=== PATIENT | female | born 1960 | race African-American/Black ===

== ENCOUNTER 2019-07-21 13:36 | Emergency (ER) | payer MEDICAID, OTHER ==
[~2019-07-21] VITALS: Ht 149.9 cm; Wt 72.6 kg
[2019-07-21 13:58] VITALS: BP 127/83
--- NOTE | 2019-07-21 13:59 | NUR ---
ED Nurse Note: ambulated in to ED due to left flank pain x4 days without N/V/D. Denies burning pain while urination. Breathing normal/even/unlabored. Skin warm/dry/intact. NAD noted. Urine sent down to the lab.
[2019-07-21] MEDS ORDERED: Ketorolac 30mg Inj IM ONE (14:00)
[2019-07-21 14:02] LABS: APPEARANCE,URINE CLEAR; BILIRUBIN, URINE NEGATIVE (NEGATIVE); COLOR,URINE PALE YELLOW; GLUCOSE, URINE (UA) NEGATIVE (NEGATIVE); KETONES,URINE NEGATIVE (NEGATIVE); LEUKOCYTE ESTERASE ,URINE NEGATIVE (NEGATIVE); NITRITE,URINE NEGATIVE (NEGATIVE); PH,URINE 6 (4.5-8.0); PROTEIN,URINE NEGATIVE (NEGATIVE); UROBILINOGEN,URINE NORMAL MG/DL (0.0-1.0)
[2019-07-21] MEDS ORDERED: Methocarbamol 750mg tab ORAL ONE (14:15)
[2019-07-21 14:38] LABS: BASOPHILS % (AUTO) 1.5 % (0.0-2.0); EOSINOPHILS % (AUTO) 4.7 % (0.0-3.0); HEMATOCRIT 42.9 % (37.0-47.0); HEMOGLOBIN 14.7 G/DL (12.0-16.0); LYMPHOCYTES % (AUTO) 31.8 % (20.0-45.0); MEAN CORPUSCULAR VOLUME 84 FL (80-99); MONOCYTES % (AUTO) 6.7 % (1.0-10.0); NEUTROPHILS % (AUTO) 55.3 % (45.0-75.0); PLATELET COUNT 272 K/UL (150-450); RED BLOOD COUNT 5.09 M/UL (4.20-5.40); RED CELL DISTRIBUTION WIDTH 11.7 % (11.6-14.8); WHITE BLOOD COUNT 5.4 K/UL (4.8-10.8)
[2019-07-21 14:46] LABS: ALANINE AMINOTRANSFERASE 31 U/L (12-78); ALKALINE PHOSPHATASE 77 U/L (46-116); ANION GAP 9 mmol/L (5-15); ASPARTATE AMINO TRANSFERASE 22 U/L (15-37); BILIRUBIN,TOTAL 0.5 MG/DL (0.2-1.0); BLOOD UREA NITROGEN 14 mg/dL (7-18); CALCIUM 9.6 MG/DL (8.5-10.1); CARBON DIOXIDE 26 MMOL/L (21-32); CHLORIDE 106 MMOL/L (98-107); POTASSIUM 4.2 MMOL/L (3.5-5.1); SODIUM 141 MMOL/L (136-145)
--- NOTE | 2019-07-21 14:46 | Emergency Room Report ---
History of Present Illness General Chief Complaint: Lower Back Pain or Injury Source: Patient Present Illness HPI 58-year-old female with no significant past medical history here complaining of sudden onset of right lower back pain that started today after lifting heavy objects. Rates the pain 10/10 without radiation. Denies any tingling numbness , urinary bowel incontinence. Denies saddle paresthesia. Denies dysuria, urinary frequency and urgency. Reports that she was also exercising and her back came in contact repeatedly with the exercise that has a small first-degree burn the site of the injury. Denies any fall or loss of consciousness. Denies chest pain, shortness of breath, headache and dizziness. Vitals are within normal limits. Denies . Allergies: Coded Allergies: No Known Allergies (Unverified , 07/21/19) COVID-19 Screening Contact w/high risk pt: No Recent Travel to affected area: No Experienced COVID-19 symptoms?: No COVID-19 Testing performed MEDICAL SERVICES COORDINATOR: No Patient History Past Medical History: see triage record Past Surgical History: none Pertinent Family History: none Now: No Immunizations: UTD Reviewed Nursing Documentation: PMH: Agreed; PSxH: Agreed Nursing Documentation-PMH Past Medical History: No Stated History Review of Systems All Other Systems: negative except mentioned in HPI Physical Exam Vital Signs Date Time Temp Pulse Resp B/P (MAP) Pulse Ox O2 Delivery O2 Flow Rate FiO2 07/21/19 13:48 98.2 69 18 127/83 (98) 98 Room Air Sp02 EP Interpretation: reviewed, normal General Appearance: no apparent distress, alert, GCS 15, non-toxic Head: normocephalic, atraumatic Eyes: bilateral eye normal inspection, bilateral eye PERRL ENT: hearing grossly normal, normal pharynx, no angioedema, normal voice Neck: full range of motion, supple/symm/no masses Respiratory: chest non-tender, lungs clear, normal breath sounds, no rhonchi, no wheezing, speaking full sentences Cardiovascular #1: regular rate, rhythm, no edema Gastrointestinal: non tender, soft Genitourinary: no CVA tenderness Musculoskeletal: back normal, no calf tenderness, no lower extremity edema, non -tender Neurologic: alert, motor strength/tone normal, oriented x3, sensory intact, responsive, speech normal Psychiatric: judgement/insight normal, memory normal, mood/affect normal, no suicidal/homicidal ideation Skin: other - First-degree healing burn at the site of injury secondary to contact heat Lymphatic: no adenopathy Medical Decision Making PA Attestation All diagnoses and treatment plans were reviewed and discussed with my supervising physician Dr. Whitman Diagnostic Impression: Primary Impression: Lumbar strain Additional Impression: First degree burn ER Course 58-year-old female with no significant past medical history here complaining of sudden onset of right lower back pain that started today after lifting heavy objects. Rates the pain 10/10 without radiation. Denies any tingling numbness , urinary bowel incontinence. Denies saddle paresthesia. Denies dysuria, urinary frequency and urgency. Reports that she was also exercising and her back came in contact repeatedly with the exercise that has a small first-degree burn the site of the injury. Denies any fall or loss of consciousness. Denies chest pain, shortness of breath, headache and dizziness. Vitals are within normal limits. Denies . Ddx considered but are not limited to: Lumbar spine sprain, strain, fracture, contusion, neuropathy Vital signs: are WNL, pt. is afebrile H&PE are most consistent with:lumbar strain, first degree burn secondary to contact heat ORDERS: No x-ray necessary at this time has been no fall or there was no bone involvement, Robaxin, ibuprofen, Bactroban ointment ER intervention: Toradol IM, Robaxin p.o. DISCHARGE: At this time pt. is stable for d/c to home. Will provide printed patient care instructions, and any necessary prescriptions. Care plan and follow up instructions have been discussed with the patient prior to discharge. Patient take medication as directed, follow-up primary doctor, if worsening symptoms return to the emergency room Last Vital Signs Date Time Temp Pulse Resp B/P (MAP) Pulse Ox O2 Delivery O2 Flow Rate FiO2 07/21/19 13:58 98.2 72 18 127/83 98 Room Air Disposition: HOME, SELF-CARE Condition: Stable Scripts Mupirocin* (MUPIROCIN*) 22 Gm Oint...g. 1 APPLIC TOPIC THREE TIMES A DAY, #22 GM Prov: Mohinder Dumont 07/21/19 Ibuprofen (Ibu) 800 Mg Tablet 800 MG PO TID, #30 TAB Prov: Mohinder Dumont 07/21/19 Methocarbamol* (ROBAXIN-500*) 500 Mg Tablet 500 MG ORAL TID PRN for For Pain, #15 TAB 0 Refills Prov: Mohinder Dumont 07/21/19 Referrals: NON PHYSICIAN (PCP) Patient Instructions: Burn Care, [id number], Lumbosacral Strain Additional Instructions: Take medication as directed, follow-up with primary doctor, increase oral hydration, avoid strenuous physical activity, if worsening symptoms return to the emergency room Mohinder Dumont July 21, 2019 14:46
[2019-07-21] MEDS ORDERED: IBU800 MG PO (14:47)
[2019-07-21] MEDS ORDERED: ROBAXIN-500MG ORAL (14:47)
[2019-07-21] MEDS ORDERED: MUPIROCIN22 GM TOPIC (14:47)
[2019-07-21 14:50] VITALS: BP 124/83
[2019-07-21 14:55] VITALS: BP 124/83
--- NOTE | 2019-07-21 14:55 | NUR ---
ER DISCHARGE NOTE: Patient is cleared to be discharged per ERMD, pt is aox4, on room air, with stable vital signs. pt was given dc and prescription instructions, pt was able to verbalize understanding, pt is able to ambulate with steady gait. pt took all belongings.
== END 2019-07-21 15:04 | disposition home or self-care (01) ==
LOC: EMR 14:01
DX: S39.012A Strain of muscle, fascia and tendon of lower back, initial encounter (principal); T21.14XA Burn of first degree of lower back, initial encounter; X58.XXXA Exposure to other specified factors, initial encounter; Y92.9 Unspecified place or not applicable
CPT/HCPCS: 36415; 80053; 81001; 85025; 96372; J1885; Z7502; 99283